=== PATIENT | female | born 1955 | race Caucasian/White ===

== ENCOUNTER → 2021-06-29 | Outpatient (CLI) | payer MEDICARE ==
--- NOTE | 2021-06-29 07:10 | MR ---
EXAMINATION TYPE: MR lumbar spine wo/w con DATE OF EXAM: 06/29/2021 COMPARISON: NONE at this institution. HISTORY: Low back pain, spondylosis, spinal stenosis, prior lumbar surgeries TECHNIQUE: Multiplanar, multisequence images of the lumbar spine is performed without and with IV contrast, util izing 9 mL intravenous Gadavist FINDINGS: Sagittal images of the lumbar spine show vertebral body height to appear satisfactory. Grad e 1 retrolisthesis of T12 on L1. Artifact from posterior diverticular rods and screws noted at L1-L2 level. Artifact from artificial disc material noted L2-L3 through the L4-L5 levels. Multilevel disc d esiccation is present. Moderate disc space narrowing T12-L1 level. Tiny posterior disc herniations ef face the anterior thecal sac at T9-T10 and T10-T11 level sagittal image 8. The conus medullaris somew hat obscured terminating near superior L1 level. Mild multilevel anterior spurring. No abnormal postc ontrast enhancement is seen. Posterior decompression changes throughout the lumbar spine are present. Axial images at T12-L1 level show artifact from posterior fusion hardware. There is moderate broad-ba sed disc bulge effacing the anterior thecal sac. Neural foramina are grossly patent on sagittal image s. Axial images at L1-L2 level show artifact from posterior fusion hardware. There is posterior decompre ssion with patent spinal canal. Bilateral neural foramina are patent. Axial images at L2-L3 level shows some artifact from disc material and posterior surgical change. Pos terior decompression with patent spinal canal is seen. Bilateral neural foramina are patent. Axial images at L3-L4 and L4-L5 show extensive posterior decompression changes with patent spinal can al. There is moderate left-sided neural foraminal narrowing at both levels. Axial images at L5-S1 level show posterior surgical change. Spinal canal is preserved. There is mild- to-moderate facet arthropathy bilaterally. No suspicious retroperitoneal findings are seen. IMPRESSION: Successful posterior decompression changes throughout the lumbar spine. Persistent metall ic hardware upper lumbar levels. Degenerative changes T12-L1 level noted.
== END | disposition home or self-care (01) ==
LOC: RADMRIMAIN 05:49
PROVIDERS: ATTEND Physical Medicine & Rehabilitation
DX: M47.815 Spondylosis without myelopathy or radiculopathy, thoracolumbar region (principal); Z98.1 Arthrodesis status; M43.26 Fusion of spine, lumbar region
CPT/HCPCS: 72158; A9585

== ENCOUNTER → 2023-03-01 | Outpatient (CLI) | payer OTHER ==
--- NOTE | 2023-03-01 16:08 | XR ---
EXAMINATION TYPE: XR thoracic spine 3 views complete, XR pelvis AP view, XR lumbar spine 3V, XR 3 vi ews sacrum coccyx, XR Hip Complete 2 views RT DATE OF EXAM: 03/01/2023 Comparison: none Clinical History: 67-year-old female 30.0XXA,S20.229A,S70.01XA Findings: Thoracic spine: Osteopenia. 12 rib-bearing thoracic vertebral bodies. Lateral endplate spondylosis midthoracic spine. Accentuated mid thoracic kyphosis. Anterior endplate spondylosis midthoracic spine. Mild to moderate degenerative disc disease mid to lower thoracic spine. Vertebral body heights are preserved and alig nment is maintained. Lumbar spine: L1-L2 posterior lumbar fusion. Additional interbody fusion down through S1. Right L5 hemisacralizatio n with a fused assimilation joint. Laminectomy changes are also present throughout. There is advanced degenerative disc disease and endplate sclerosis above the fusion at T12-L1. Fixed grade 1 anterolis thesis L3-L4 and L4-L5. Lateral osseous fusion changes demonstrated. Vertebral body heights are prese rved. Sacrum and coccyx: SI joints appear symmetric and intact. Smooth delineation of the arcuate lines of the sacrum. No disp laced or angulated sacral or coccygeal fracture seen. Pelvis and right hip:: Mild joint space narrowing superior weight-bearing aspect of both hips. Mild marginal spurring is pre sent. No acute fracture, subluxation, dislocation seen on either side. Pelvic phleboliths. Impression: 1. Thoracic spine: Accentuated midthoracic kyphosis with scattered endplate spondylosis and mild to m oderate degenerative disc disease mid to lower thoracic spine. No vertebral compression collapse or m alalignment. 2. Lumbar spine: L1-L2 posterior lumbar fusion. Additional interbody and lateral osseous fusion joyce es down to S1 with laminectomy. Fixed grade 1 anterolisthesis L3-L4 and L4-L5. No vertebral compressi on collapse. Severe degenerative change above the fusion at T12-L1. 3. Sacrum and coccyx: No angulated or displaced sacral or tailbone fracture identified. 4. Pelvis and right hip: Mild degenerative change of both hips. No acute osseous abnormality seen.
== END | disposition home or self-care (01) ==
LOC: RADXRMAIN 15:03
PROVIDERS: ATTEND Emergency Medicine
DX: S70.01XA Contusion of right hip, initial encounter (principal); S30.0XXA Contusion of lower back and pelvis, initial encounter; S20.229A Contusion of unspecified back wall of thorax, initial encounter; M16.0 Bilateral primary osteoarthritis of hip; M43.16 Spondylolisthesis, lumbar region; M40.204 Unspecified kyphosis, thoracic region; M47.814 Spondylosis without myelopathy or radiculopathy, thoracic region; M51.34 Other intervertebral disc degeneration, thoracic region; X58.XXXA Exposure to other specified factors, initial encounter; Z98.1 Arthrodesis status
CPT/HCPCS: 72072; 72100; 72170; 72220; 73502

== ENCOUNTER → 2023-03-06 | Outpatient (CLI) | payer OTHER ==
--- NOTE | 2023-03-06 11:04 | CT ---
EXAMINATION TYPE: CT pelvis wo con CT DLP: 609.6 mGycm, Automated exposure control for dose reduction was used. DATE OF EXAM: 03/06/2023 10:24 AM COMPARISON: 03/01/2023 radiographs CLINICAL INDICATION:Female, 67 years old with history of S30.0XXA; fall/pain TECHNIQUE: CT of the pelvis performed without contrast. Sagittal and coronal reformats were created on a separate workstation. Contrast used: mL of , (none if empty) Oral contrast used: without Oral Contrast (none if empty) FINDINGS: Exam is limited without contrast. BLADDER: Unremarkable REPRODUCTIVE: The uterus appears absent, correlate for hysterectomy. Ovaries are not clearly seen. Th ere are multiple surgical clips in the left pelvis and multiple bilateral pelvic phleboliths. ABDOMEN & PELVIS BOWEL: Visualized small bowel loops are unremarkable. There are multiple colonic diverticula seen, wi thout evidence of diverticulitis. Appendix is gas-filled and appears within normal limits. PERITONEUM/RETROPERITONEUM: No evidence of pneumoperitoneum or free fluid. VASCULATURE: Mild calcifications of the iliac arteries. LYMPH NODES: No enlarged pelvic or inguinal lymph nodes. SOFT TISSUE/ABDOMINAL WALL: Small fat-containing umbilical hernia. MUSCULOSKELETAL: Generalized osteopenia. No destructive bony lesions. Postfusion changes of the lowe r lumbar spine. Near-complete sacralization of the right side of L5. Moderate degenerative change of the SI joints and symphysis. No clearly acute sacral fracture lucency is seen. There is a mild cortic al deformity seen in the mid S3 segment which could be sequela of prior trauma, with acute/subacute i njury not excluded. Pelvis appears symmetric and intact. There are a few small scattered sclerotic de nsities seen, most notably in the left iliac wing, left inferior acetabulum, proximal right femur, li [place]. No significant malalignment. Mild bilateral hip osteoarthropathy. No acute fractur e or dislocation is seen involving either hip. Proximal femurs are intact. IMPRESSION: 1. Osteopenia and chronic/degenerative changes. 2. No acute pelvic or hip fracture or dislocation. 3. Mild cortical deformity in the mid S3 sacral segment could be sequela of prior trauma, with acute /subacute injury not excluded.
== END | disposition home or self-care (01) ==
LOC: RADCTMAIN 10:04
PROVIDERS: ATTEND Emergency Medicine
DX: S30.0XXA Contusion of lower back and pelvis, initial encounter (principal); S70.01XD Contusion of right hip, subsequent encounter; M85.88 Other specified disorders of bone density and structure, other site
CPT/HCPCS: 72192